=== PATIENT | male | born 1990 | race African-American/Black ===

== ENCOUNTER 2021-07-10 13:40 | Inpatient (IN) | payer OTHER ==
[2021-07-10] MEDS ORDERED: MAGNESIUM CITRATE 300 ML BOTTLE PO PRN (15:30)
[2021-07-10] MEDS ORDERED: BISMUTH SUBSALICYLATE 524 MG/30 ML PO PRN (15:30)
[2021-07-10] MEDS ORDERED: ACETAMINOPHEN 325 MG TABLET (FP) PO PRN ×2 (15:30)
[2021-07-10] MEDS ORDERED: NICOTINE 10 MG CARTRIDGE (INHALER) IH PRN (15:30)
[2021-07-10] MEDS ORDERED: MAGNESIUM HYDROX 2400MG/30ML ORAL SUSPENSION 30 ML CUP PO PRN (15:30)
[2021-07-10] MEDS ORDERED: MENTHOL/PHENOL 1 EACH UD MM PRN (15:30)
[2021-07-10] MEDS ORDERED: MAG HYDROX/AL HYDROX/SIMETH 30 ML UNIT-DOSE CUP PO PRN (15:30)
[2021-07-10 15:40] VITALS: BMI 21.9
[2021-07-10] MEDS: hydrOXYzine PAMOATE 25 MG CAPSULE (FP) PO SCH ×2 (18:01→22:21)
[2021-07-10] MEDS: METHOCARBAMOL 500 MG TABLET PO PRN (18:01)
[2021-07-10] MEDS: THIAMINE HCL 100 MG TABLET (FP) PO SCH (22:21)
[2021-07-10] MEDS: MELATONIN 5 MG TABLETS PO SCH (22:22)
[2021-07-10] MEDS: IBUPROFEN 400 MG TABLET (FP) PO PRN (22:23)
[2021-07-11] MEDS: METHOCARBAMOL 500 MG TABLET PO PRN ×2 (02:59→18:12)
[2021-07-11] MEDS: ONDANSETRON *ODT* 4 MG TABLET SL PRN ×2 (02:59→10:35)
[2021-07-11] MEDS ORDERED: hydrOXYzine PAMOATE 50 MG CAPSULE (FP) PO ONE (03:32)
[2021-07-11] MEDS ORDERED: hydrOXYzine PAMOATE 25 MG CAPSULE (FP) PO PRN (03:33)
[2021-07-11] MEDS ORDERED: diazePAM 5 MG TABLET PO PRN (03:56)
[2021-07-11] MEDS: diazePAM 5 MG TABLET PO SCH ×4 (04:55→22:28)
[2021-07-11] MEDS: PRENATAL VITAMINS W/ FOLIC ACID TABLET (FP) PO SCH (10:31)
[2021-07-11 14:38] LABS: HEMATOCRIT 40.1 % (35.4-49); HEMOGLOBIN 13.4 GM/dL (11.7-16.9); MCH 29.9 pg (25.7-33.7); MCHC 33.4 g/dl (32.0-35.9); MEAN CELL VOLUME 89.5 fl (80-96); MEAN PLT VOLUME 9.6 fl (7.5-11.1); PLATELET COUNT 316 10^3/uL (134-434); RBC 4.48 M/mm3 (4.00-5.60); RDW 13.2 % (11.9-15.9); WHITE BLOOD COUNT 4.2 K/mm3 (4.0-10.0)
[2021-07-11 17:00] LABS: ALBUMIN 3.9 g/dl (3.4-5.0); BILIRUBIN,TOTAL 3.8 mg/dL (0.2-1); BLOOD UREA NITROGEN 5.8 mg/dL (7-18); CALCIUM 9.5 mg/dL (8.5-10.1); CREATININE 0.9 mg/dL (0.55-1.3); TOT PROT 7.7 g/dl (6.4-8.2)
[2021-07-11] MEDS: IBUPROFEN 400 MG TABLET (FP) PO PRN (22:27)
[2021-07-11] MEDS: MELATONIN 5 MG TABLETS PO SCH (22:28)
[2021-07-11] MEDS: THIAMINE HCL 100 MG TABLET (FP) PO SCH (22:28)
[2021-07-12] MEDS: diazePAM 5 MG TABLET PO SCH ×3 (05:57→22:11)
[2021-07-12] MEDS: PRENATAL VITAMINS W/ FOLIC ACID TABLET (FP) PO SCH (10:13)
[2021-07-12] MEDS: MELATONIN 5 MG TABLETS PO SCH (22:11)
[2021-07-12] MEDS: THIAMINE HCL 100 MG TABLET (FP) PO SCH (22:11)
[2021-07-12] MEDS: IBUPROFEN 400 MG TABLET (FP) PO PRN (22:13)
[2021-07-12] MEDS: METHOCARBAMOL 500 MG TABLET PO PRN (22:14)
[2021-07-13] MEDS ORDERED: diazePAM 5 MG TABLET PO SCH (06:00)
[2021-07-13 06:09] VITALS: PULSE 75
[2021-07-13 09:36] VITALS: BP 114/80
[2021-07-13 10:00] VITALS: TEMP 97.4
[2021-07-13] MEDS: PRENATAL VITAMINS W/ FOLIC ACID TABLET (FP) PO SCH (10:33)
[2021-07-14] MEDS ORDERED: diazePAM 5 MG TABLET PO ONE (06:00)
== END 2021-07-13 11:05 | disposition home or self-care (01) | DRG 775 ==
LOC: YASAS 13:40 → Y3N 17:17
PROVIDERS: ADMIT Allergy & Immunology; ATTEND Allergy & Immunology
PROC: HZ2ZZZZ Detoxification Services for Substance Abuse Treatment (ICD-10-PCS; principal; 2021-07-10)
DX: F10.230 Alcohol dependence with withdrawal, uncomplicated (principal); R94.5 Abnormal results of liver function studies; Z86.69 Personal history of other diseases of the nervous system and sense organs
CPT/HCPCS: 36415; 80053; 85027; 86780; 93005; 93010; C9803; Q0162; U0003; U0005

== ENCOUNTER 2022-10-31 09:46 | Inpatient (IN) | payer OTHER ==
[2022-10-31 10:25] VITALS: BMI 17.8
[2022-10-31] MEDS ORDERED: LOPERAMIDE HCL 2 MG CAPSULE PO PRN (12:02)
[2022-10-31] MEDS ORDERED: IBUPROFEN 600 MG TABLET (FP) PO PRN (12:02)
[2022-10-31] MEDS ORDERED: NICOTINE 10 MG CARTRIDGE (INHALER) IH PRN (12:02)
[2022-10-31] MEDS ORDERED: ACETAMINOPHEN 325 MG TABLET (FP) PO PRN (12:02)
[2022-10-31] MEDS ORDERED: MAGNESIUM HYDROX 2400MG/30ML ORAL SUSPENSION 30 ML CUP PO PRN (12:02)
[2022-10-31] MEDS ORDERED: IBUPROFEN 400 MG TABLET (FP) PO PRN (12:02)
[2022-10-31] MEDS ORDERED: chlordiazePOXIDE HCL 25 MG CAPSULE PO PRN (12:02)
[2022-10-31] MEDS ORDERED: guaiFENesin 600 MG TABLET.ER (FP) PO PRN (12:02)
[2022-10-31] MEDS ORDERED: DICYCLOMINE HCL 10 MG CAPSULE PO PRN (12:02)
[2022-10-31] MEDS ORDERED: MAG HYDROX/AL HYDROX/SIMETH 30 ML UNIT-DOSE CUP PO PRN (12:02)
[2022-10-31] MEDS ORDERED: BENZOCAINE/MENTHOL (CHLORASEPTIC ) LOZENGE MM PRN (12:02)
[2022-10-31] MEDS ORDERED: METHOCARBAMOL 500 MG TABLET PO PRN (12:02)
[2022-10-31] MEDS ORDERED: POLYETHYLENE GLYCOL (HEALTHYLAX) 3350 17 GM PACKET PO PRN (12:02)
[2022-10-31] MEDS ORDERED: NICOTINE 7 MG/24 HOURS TOPICAL PATCH TD PRN (12:02)
[2022-10-31] MEDS ORDERED: BISMUTH SUBSALICYLATE 262 MG/15 ML BTL PO PRN (12:02)
[2022-10-31] MEDS ORDERED: NICOTINE POLACRILEX 2 MG GUM BUC PRN (12:02)
[2022-10-31] MEDS ORDERED: hydrOXYzine PAMOATE 25 MG CAPSULE (FP) PO PRN (12:02)
[2022-10-31] MEDS ORDERED: ONDANSETRON *ODT* 4 MG TABLET SL PRN (12:02)
[2022-10-31] MEDS ORDERED: BENZONATATE 200 MG CAPSULE PO PRN (12:02)
[2022-10-31] MEDS ORDERED: ALBUTEROL SO4 HFA INHALER IH PRN (12:13)
[2022-10-31] MEDS ORDERED: chlordiazePOXIDE HCL 25 MG CAPSULE ONE (12:29)
[2022-10-31] MEDS: chlordiazePOXIDE HCL 25 MG CAPSULE PO SCH ×2 (17:36→22:17)
[2022-10-31] MEDS: THIAMINE HCL 100 MG TABLET (FP) PO SCH (22:17)
[2022-10-31] MEDS: MELATONIN 5 MG TABLETS PO SCH (22:17)
[2022-11-01] MEDS: chlordiazePOXIDE HCL 25 MG CAPSULE PO SCH ×4 (05:38→22:30)
[2022-11-01] MEDS: PRENATAL VITAMINS W/ FOLIC ACID TABLET (FP) PO SCH (10:27)
[2022-11-01 10:40] LABS: HEMATOCRIT 39.6 % (35.4-49); HEMOGLOBIN 13.1 GM/dL (11.7-16.9); MCH 30.6 pg (25.7-33.7); MCHC 33.2 g/dl (32.0-35.9); MEAN CELL VOLUME 92.3 fl (80-96); MEAN PLT VOLUME 9.9 fl (7.5-11.1); PLATELET COUNT 131 10^3/uL (134-434); RBC 4.29 M/mm3 (4.00-5.60); WHITE BLOOD COUNT 3.9 K/mm3 (4.0-10.0)
[2022-11-01 10:59] LABS: BLOOD UREA NITROGEN 7.9 mg/dL (7-18); CALCIUM 9.5 mg/dL (8.5-10.1)
[2022-11-01 11:00] LABS: ALBUMIN 3.8 g/dl (3.4-5.0)
[2022-11-01 11:04] LABS: BILIRUBIN,TOTAL 2.2 mg/dL (0.2-1)
[2022-11-01] MEDS: MELATONIN 5 MG TABLETS PO SCH (22:30)
[2022-11-01] MEDS: THIAMINE HCL 100 MG TABLET (FP) PO SCH (22:30)
[2022-11-02] MEDS: chlordiazePOXIDE HCL 25 MG CAPSULE PO SCH ×4 (05:40→22:16)
[2022-11-02] MEDS: PRENATAL VITAMINS W/ FOLIC ACID TABLET (FP) PO SCH (10:28)
[2022-11-02] MEDS: MELATONIN 5 MG TABLETS PO SCH (22:16)
[2022-11-02] MEDS: THIAMINE HCL 100 MG TABLET (FP) PO SCH (22:16)
[2022-11-03] MEDS ORDERED: chlordiazePOXIDE HCL 10 MG CAPSULE PO PRN
[2022-11-03] MEDS: chlordiazePOXIDE HCL 10 MG CAPSULE PO SCH ×2 (05:28→10:34)
[2022-11-03 09:06] VITALS: RESP 18
[2022-11-03] MEDS: PRENATAL VITAMINS W/ FOLIC ACID TABLET (FP) PO SCH (10:34)
[2022-11-03 12:56] VITALS: BP 132/82; PULSE 100; TEMP 98.1
[2022-11-04] MEDS ORDERED: chlordiazePOXIDE HCL 10 MG CAPSULE PO SCH (05:00)
[2022-11-05] MEDS ORDERED: chlordiazePOXIDE HCL 10 MG CAPSULE PO ONE (05:00)
== END 2022-11-03 14:30 | disposition left against medical advice (07) | DRG 770 ==
LOC: YASAS 09:46 → Y3N 12:27
PROVIDERS: ADMIT Allergy & Immunology; ATTEND Surgery
PROC: HZ2ZZZZ Detoxification Services for Substance Abuse Treatment (ICD-10-PCS; principal; 2022-10-31)
DX: F10.230 Alcohol dependence with withdrawal, uncomplicated (principal); F17.293 Nicotine dependence, other tobacco product, with withdrawal; R63.4 Abnormal weight loss; Z68.1 Body mass index [BMI] 19.9 or less, adult
CPT/HCPCS: 36415; 80053; 85027; 86780; 87811; C9803-CS; U0003; U0005